=== PATIENT | female | born 1955 | race Caucasian/White ===

== ENCOUNTER 2020-09-02 13:20 | Emergency (ER) | payer OTHER ==
[~2020-09-02] VITALS: Ht 162.6 cm; Wt 86.2 kg
--- NOTE | 2020-09-02 13:53 | NUR ---
YAEL SALAZAR AT .
[2020-09-02] MEDS ORDERED: SODIUM CHLORIDE 0.9% 1,000ML IVBOLUS ONE (14:00)
[2020-09-02] MEDS ORDERED: SODIUM CHLORIDE FLUSH 10ML SYR IVF ONE (14:00)
[2020-09-02] MEDS ORDERED: ONDANSETRON 2MG/ML, 2ML IVPush ONE (14:00)
[2020-09-02] MEDS ORDERED: ONDANSETRON 2MG/ML, 2ML ONE (14:05)
[2020-09-02 14:47] LABS: BASOPHILS % (AUTO) 0 % (0-1); EOSINOPHILS % (AUTO) 0 % (1-7); LYMPHOCYTES % (AUTO) 29 % (22-44); MEAN CORPUSCULAR HEMOGLOBIN 31.4 pg (27.0-34.8); MEAN CORPUSCULAR HGB CONC 34.9 g/dL (32.4-35.8); MEAN PLATELET VOLUME 8.3 fL (7.4-10.4); MONOCYTES % (AUTO) 8 % (2-9); NEUTROPHILS % (AUTO) 62 % (42-75); PLATELET COUNT 328 x10^3/uL (130-400); RED BLOOD COUNT 4.59 x10^6/uL (3.82-5.3); RED CELL DISTRIBUTION WIDTH 12.6 % (9.6-15.2)
[2020-09-02 14:50] LABS: RAPID INFLUENZA A Negative (Negative); RAPID INFLUENZA B Negative (Negative)
[2020-09-02 14:52] LABS: ALANINE AMINOTRANSFERASE 35 U/L (12-78); ALBUMIN 3.9 g/dL (3.4-5.0); ANION GAP 10 mmol/L (5-15); CALCIUM 9.8 mg/dL (8.5-10.1); CHLORIDE 96 mmol/L (98-107); CREATININE 0.83 mg/dL (0.55-1.02)
[2020-09-02 14:55] LABS: ALKALINE PHOSPHATASE 61 U/L (45-117)
[2020-09-02] MEDS ORDERED: POTASSIUM CHLORIDE 20 MEQ TAB.ER.PRT PO ONE (15:00)
[2020-09-02] MEDS ORDERED: POTASSIUM CHLORIDE 20 MEQ TAB.ER.PRT ONE (15:02)
--- NOTE | 2020-09-02 15:05 | NUR ---
WATER PROVIDED TO PT. UPDATED HER ON POC.
[2020-09-02] MEDS ORDERED: METF500T27 PO (15:07)
[2020-09-02] MEDS ORDERED: ATOR20TA37 PO (15:09)
[2020-09-02] MEDS ORDERED: SEMA1PEN3 INJ (15:09)
[2020-09-02] MEDS ORDERED: SERT50TA28 PO (15:09)
[2020-09-02 15:53] VITALS: BP 121/71
--- NOTE | 2020-09-02 15:54 | NUR ---
PT TOLERATED WATER. ER PA WAS IN FOR RECHECK. D/C INSTRUCTIONS, MEDS & F/U APPT RV'WD WITH PT, SHE VERBALIZES UNDERSTANDING. RX GIVEN X2. PT AMBULATED OUT OF ED WITHOUT DIFFICULTY, STATES HER WILL PICK HER UP.
== END 2020-09-02 15:54 | disposition home or self-care (01) ==
LOC: ED 15:45
DX: B34.9 Viral infection, unspecified (principal); Z20.822 Contact with and (suspected) exposure to COVID-19; E78.5 Hyperlipidemia, unspecified; E11.9 Type 2 diabetes mellitus without complications
CPT/HCPCS: 36415; 71045; 80053; 85025; 87400; 96361; 96374; 99284; J2405; J7030; U0003; U0005